=== PATIENT | female | born 1965 | race Asian ===

== ENCOUNTER 2021-11-19 14:52 | Emergency (ER) | payer BC ==
[~2021-11-19] VITALS: Ht 160 cm; Wt 55.0 kg
[2021-11-19] MEDS ORDERED: METF-838 PO (15:05)
[2021-11-19 17:42] LABS: BASO % 0.6 % (0.0-1.0); EOS # 0.1 10^3/uL (0.0-0.5); EOS % 1.5 % (0.0-3.0); HEMATOCRIT 42.2 % (36.0-47.0); HEMOGLOBIN 13.7 g/dl (12.0-15.5); LYMPH # 0.8 10^3/uL (1.5-5.0); LYMPH % 17.7 % (24.0-44.0); MEAN CORPUSCULAR HEMOGLOBIN 23.7 pg (27.0-33.0); MEAN CORPUSCULAR HGB CONC 32.5 g/dl (32.0-36.5); MONO # 0.2 10^3/uL (0.0-0.8); MONO % 4.2 % (2.0-8.0); NEUTROPHILS # 3.6 10^3/uL (1.5-8.5); NEUTROPHILS % 75.6 % (36.0-66.0); PLATELET COUNT, AUTOMATED 172 10^3/uL (150-450); RED BLOOD COUNT 5.78 10^6/uL (4.00-5.40); WHITE BLOOD COUNT 4.7 10^3/uL (4.0-10.0)
[2021-11-19 18:42] LABS: ALBUMIN 3.8 GM/DL (3.2-5.2); BILIRUBIN,DIRECT < 0.1 MG/DL (0.0-0.2); BILIRUBIN,TOTAL 0.7 MG/DL (0.2-1.0); BLOOD UREA NITROGEN 20 MG/DL (7-18); CARBON DIOXIDE LEVEL 29 MEQ/L (21-32); CHLORIDE LEVEL 96 MEQ/L (98-107); CREATININE FOR GFR 0.83 MG/DL (0.55-1.30); GLOMERULAR FILTRATION RATE > 60.0 (>51); GLUCOSE, FASTING 365 MG/DL (70-100); POTASSIUM SERUM 5.2 MEQ/L (3.5-5.1); SODIUM LEVEL 132 MEQ/L (136-145)
[2021-11-19 18:47] LABS: TOTAL PROTEIN 8.1 GM/DL (6.4-8.2)
[2021-11-19] MEDS ORDERED: hydroCHLOROthiazide 12.5 MG CAPSULE PO ONE (18:50)
[2021-11-19] MEDS ORDERED: atenoloL 25 MG TAB PO ONE (18:50)
[2021-11-19 19:07] VITALS: BP 177/106
[2021-11-19 19:13] LABS: ALT/SGPT 21 IU/L (0-32)
[2021-11-19 21:13] VITALS: BP 154/90
[2021-11-19] MEDS ORDERED: ATEN25TA PO (21:26)
[2021-11-19] MEDS ORDERED: LISI20TA33 PO (21:26)
[2021-11-19] MEDS ORDERED: HYDR12.55 PO (21:27)
== END 2021-11-19 21:37 | disposition home or self-care (01) ==
LOC: M ED 14:52
DX: I16.0 Hypertensive urgency (principal); E11.9 Type 2 diabetes mellitus without complications; Z79.899 Other long term (current) drug therapy

== ENCOUNTER → 2022-01-10 | Outpatient (CLI) | payer BC ==
[~2022-01-10] MED LIST: ATEN25TA PO; HYDR12.55 PO; LISI20TA33 PO; METF-838 PO
[2022-01-10 14:10] LABS: ALT/SGPT 34 U/L (12-78); BILIRUBIN,TOTAL 0.8 MG/DL (0.2-1.0); BLOOD UREA NITROGEN 24 MG/DL (7-18); CALCIUM LEVEL 9.1 MG/DL (8.5-10.1); CARBON DIOXIDE LEVEL 27 MEQ/L (21-32); CHLORIDE LEVEL 100 MEQ/L (98-107); CHOLESTEROL LEVEL 262 MG/DL (<200); CHOLESTEROL RISK RATIO 11.909 (<5); CREATININE FOR GFR 0.89 MG/DL (0.55-1.30); GLOMERULAR FILTRATION RATE > 60.0 (>51); GLUCOSE, FASTING 290 MG/DL (70-100); HDL CHOLESTEROL 22 MG/DL (>40); NON-HDL-C 240 MG/DL; POTASSIUM SERUM 4.2 MEQ/L (3.5-5.1); SODIUM LEVEL 134 MEQ/L (136-145); TOTAL PROTEIN 8.1 GM/DL (6.4-8.2); TRIGLYCERIDES LEVEL 3439 MG/DL (<150)
[2022-01-10 14:58] LABS: HEMOGLOBIN A1c 9.8 %
== END ==
LOC: M LAB 10:17
PROVIDERS: ATTEND Nurse Practitioner Family
DX: E11.9 Type 2 diabetes mellitus without complications (principal)

== ENCOUNTER → 2022-04-11 | Outpatient (CLI) | payer BC ==
[2022-04-11 10:38] LABS: HEMOGLOBIN A1c 11.9 %
[2022-04-11 11:42] LABS: ALT/SGPT 29 U/L (12-78); BILIRUBIN,TOTAL 0.8 MG/DL (0.2-1.0); BLOOD UREA NITROGEN 23 MG/DL (7-18); CALCIUM LEVEL 8.3 MG/DL (8.5-10.1); CARBON DIOXIDE LEVEL 30 MEQ/L (21-32); CHLORIDE LEVEL 96 MEQ/L (98-107); CHOLESTEROL LEVEL 177 MG/DL (<200); GLOMERULAR FILTRATION RATE 45.3 (>51); GLUCOSE, FASTING 374 MG/DL (70-100); POTASSIUM SERUM 3.8 MEQ/L (3.5-5.1); SODIUM LEVEL 131 MEQ/L (136-145); TRIGLYCERIDES LEVEL 1846 MG/DL (<150)
[2022-04-11 11:43] LABS: ALBUMIN 4.2 GM/DL (3.2-5.2); CHOLESTEROL RISK RATIO 11.062 (<5); HDL CHOLESTEROL 16 MG/DL (>40); NON-HDL-C 161 MG/DL; TOTAL PROTEIN 8.2 GM/DL (6.4-8.2)
== END ==
LOC: M LAB 09:28
PROVIDERS: ATTEND Nurse Practitioner Family
DX: E11.9 Type 2 diabetes mellitus without complications (principal)

== ENCOUNTER → 2022-05-17 | Outpatient (REF) | payer BC ==
[2022-05-17 19:25] LABS: CREATININE, URINE 60.8 MG/DL; MAU/CREAT RATIO 156.2 MCG/MG (0.0-30.0)
== END ==
LOC: M LAB REF 17:34
PROVIDERS: ATTEND Nurse Practitioner Family
DX: E11.9 Type 2 diabetes mellitus without complications (principal)